=== PATIENT | female | born 1950 | race Caucasian/White ===

== ENCOUNTER 2016-03-18 18:28 | Emergency (ER) | payer MEDICARE ==
[2016-03-18 19:54] VITALS: BP 191/78
== END 2016-03-18 21:18 | disposition left against medical advice (07) ==
LOC: ED 18:28
DX: I10 Essential (primary) hypertension (principal); Z53.21 Procedure and treatment not carried out due to patient leaving prior to being seen by health care provider; Z88.2 Allergy status to sulfonamides
CPT/HCPCS: 99281

== ENCOUNTER 2016-03-18 22:47 | Emergency (ER) | payer MEDICARE ==
[2016-03-18 22:57] VITALS: BP 178/85
== END 2016-03-18 23:02 | disposition left against medical advice (07) ==
LOC: ED 22:47
DX: I10 Essential (primary) hypertension (principal); Z53.21 Procedure and treatment not carried out due to patient leaving prior to being seen by health care provider
CPT/HCPCS: 99281

== ENCOUNTER 2023-10-11 08:48 | Observation (INO) ==
[2023-10-11 11:03] LABS: ABS Basophils 0.1 10^3/uL (0.0-0.1); ABS Lymphocytes 1.2 10^3/uL (1.0-4.8); ABS Monocytes 0.3 10^3/uL (0.0-0.9); ABS Neutrophils 3.9 10^3/uL (1.5-7.6); Eosinophil % 0.3 %; Hematocrit 41.2 % (35-45); Hemoglobin 14.1 g/dL (11.5-14.3); Lymphocyte % 22.2 %; Mean Corpuscular Hemoglobin 32.8 pg (27-33); Mean Corpuscular Hgb Conc 34.3 g/dL (31-36); Mean Corpuscular Volume 95.4 fL (80-97); Mean Platelet Volume 7.9 fL (7.5-11.2); Platelet Count 259 10^3/uL (150-450); Red Blood Count 4.31 10^6/uL (3.63-4.92); Red Cell Distribution Width 12.8 % (12-17); White Blood Count 5.6 10^3/uL (3.8-11.8)
[2023-10-11 11:17] LABS: INR 0.94 (0.83-1.13)
[2023-10-11 11:23] LABS: High Sens Troponin Baseline 4 pg/mL (<15)
[2023-10-11 11:51] LABS: ALT 22 U/L (7-52); Albumin 4.7 g/dL (3.2-5.2); Albumin/Globulin Ratio 1.8 (1-3); Alkaline Phosphatase 99 U/L (35-149); Anion Gap 10 mmol/L (2-16); Blood Urea Nitrogen 22 mg/dL (6-24); CO2 Carbon Dioxide 29 mmol/L (22-32); Calcium 9.8 mg/dL (8.6-10.3); Chloride 102 mmol/L (101-111); Creatinine, Serum 0.68 mg/dL (0.51-0.95); Globulin 2.6 g/dL (2-4); Glucose 94 mg/dL (70-100); Sodium 141 mmol/L (135-145); Total Bilirubin 0.4 mg/dL (0.2-1.0); Total Protein 7.3 g/dL (6.4-8.9); eGFR CKD-EPI 91.3 (>60)
[2023-10-11] MEDS: Iohexol 350 (CONTRAST) 500 ML MDV IV ONE (13:03)
[2023-10-11] MEDS ORDERED: HYDROcodone/ACETAMIN 5/325 mg TAB PO PRN (14:32)
[2023-10-11] MEDS: Enoxaparin 40 MG/0.4 ML SYR SUBCUT SCH (16:21)
[2023-10-11 17:53] LABS: HDL Cholesterol 90.1 mg/dL
[2023-10-12] MEDS: Cholecalciferol (VIT D3) 1,000 unit TAB PO SCH (07:47)
[2023-10-12] MEDS ORDERED: Coenzyme Q10 CAP (NF) ** ENTER STREGNTH IN LABEL DIRECTIONS PO SCH (09:00)
[2023-10-12] MEDS: Sulfur Hexaflouride MICROSPHR 25 MG VIAL IV ONE (10:44)
[2023-10-12 14:04] VITALS: BP 112/58
== END 2023-10-12 13:59 | disposition home or self-care (01) ==
LOC: EDHOLD 08:48 → ED 08:48 → MEDTELE 21:12
PROVIDERS: ADMIT Student in an Organized Health Care Education/Training Program; ATTEND Student in an Organized Health Care Education/Training Program